=== PATIENT | male | born 1940 | race Caucasian/White ===

== ENCOUNTER 2019-12-14 09:13 | Emergency (ER) | payer MEDICARE, OTHER ==
--- NOTE | 2019-12-14 09:34 | EDM.PDOC ---
ED HPI GENERAL MEDICAL PROBLEM - General Chief Complaint: Genitourinary Problem Stated Complaint: BLOOD IN URINE WITH R SIDE PAIN Time Seen by Provider: 12/14/19 09:32 Source of Information: Reports: Patient, Significant Other History Limitations: Reports: No Limitations - History of Present Illness Onset: Today Onset Date: 12/14/19 Onset Time: 08:45 Duration: Getting Worse Location: Reports: Back (R flank) Quality: Reports: Sharp Severity: Severe Right Groin Pain Score (Numeric/FACES): 4 - Related Data Allergies Allergy/AdvReac Type Severity Reaction Status Date / Time No Known Allergies Allergy Verified 12/14/19 09:32 Home Meds: Home Meds Aspirin [Aspir 81] 81 mg PO DAILY 12/14/19 [History] Cholecalciferol (Vitamin D3) [Vitamin D3] 5,000 unit PO DAILY 12/14/19 [History] Indomethacin, Submicronized [Indomethacin] 50 mg PO ASDIRECTED PRN 12/14/19 [History] Losartan [Cozaar] 100 mg PO DAILY 12/14/19 [History] Multivitamin [Multi-Vitamin Daily] 1 each PO DAILY 12/14/19 [History] Ubidecarenone [Co Q10] 200 mg PO DAILY 12/14/19 [History] Vitamin B Complex with C [Super B Complex With C] 1 cap PO DAILY 12/14/19 [History] Past Medical History Cardiovascular History: Reports: Hypertension - Past Surgical History Male Surgical History: Reports: Prostatectomy, TURP-Transurethral Resection of Prostate Musculoskeletal Surgical History: Reports: Hip Replacement (Right) ED ROS GENERAL - Review of Systems Review Of Systems: See Below Constitutional: Denies: Fever, Weight Loss HEENT: Reports: No Symptoms Respiratory: Denies: Shortness of Breath, Wheezing Cardiovascular: Denies: Chest Pain GI/Abdominal: Reports: Nausea. Denies: Decreased Appetite, Vomiting : Reports: Flank Pain, Hematuria. Denies: Dysuria Skin: Reports: No Symptoms Psychiatric: Reports: No Symptoms Hematologic/Lymphatic: Denies: Anemia, Easy Bleeding, Easy Bruising ED EXAM, RENAL/ - Physical Exam Exam: See Below Exam Limited By: No Limitations General Appearance: Alert, WD/WN, Obese Nose: Normal Inspection Throat/Mouth: Normal Inspection, Other (well hydrated) Head: Atraumatic Neck: Supple, Non-Tender Respiratory/Chest: No Respiratory Distress, Lungs Clear Cardiovascular: Normal Peripheral Pulses, Regular Rate, Rhythm GI/Abdominal: Normal Bowel Sounds, Soft, Other (R flank tenderness.) (Male) Exam: Normal Inspection, Circumcised, Scrotum Tenderness (R). No: Hernia, Inguinal Lymphadenopathy, Penile Lesions, Rash Back Exam: Normal Inspection, CVA Tenderness (R). No: CVA Tenderness (L) Extremities: Normal Inspection, Normal Range of Motion Course - Vital Signs Text/Narrative:: initial differential Dx: UTI, hemorrhagic cystitis, nephrolithiasis. No tachycardia, but pt. is hypertensive. Urinalysis is packed with red blood cells but no white blood cells, nitrites, or bacteria. No evidence of infection, but consistent with kidney stones. Shows a 0.9 cm mass in the bladder wall. No stones are seen. Radiologist has recommended follow-up cystoscopy. At 1150 I called [facility] in [place]. The patient has previously seen Dr. Delaney in urology clinic at . They will make arrangements for the patient to be seen again and will call the patient with an appointment. In the meantime I will be having my ED note faxed to them at [phone]. We will also pax the CT scan to . Last Recorded V/S: Last Vital Signs Temp 36.4 C 12/14/19 09:56 Pulse 68 12/14/19 09:56 Resp 16 12/14/19 09:56 BP 190/94 H 12/14/19 09:56 Pulse Ox 96 12/14/19 09:56 - Orders/Labs/Meds Labs: Laboratory Tests 12/14/19 12/14/19 12/14/19 Range/Units 09:31 10:15 10:15 WBC 6.7 (4.5-11.0) K/uL RBC 4.43 (4.30-5.90) M/uL Hgb 13.1 (12.0-15.0) g/dL Hct 40.1 (40.0-54.0) % MCV 91 (80-98) fL MCH 30 (27-31) pg MCHC 33 (32-36) % Plt Count 183 (150-400) K/uL PT 10.7 (9.5-12.0) sec INR 0.98 (0.80-1.20) Sodium (140-148) mmol/L Potassium (3.6-5.2) mmol/L Chloride (100-108) mmol/L Carbon Dioxide (21-32) mmol/L Anion Gap (5.0-14.0) mmol/L BUN (7-18) mg/dL Creatinine (0.8-1.3) mg/dL Est Cr Clr Drug Dosing mL/min Estimated GFR (MDRD) (>60) Glucose (74-106) mg/dL Calcium (8.5-10.1) mg/dL Total Bilirubin (0.2-1.0) mg/dL AST (15-37) U/L ALT (12-78) U/L Alkaline Phosphatase (46-116) U/L Total Protein (6.4-8.2) g/dL Albumin (3.4-5.0) g/dL Globulin (2.3-3.5) g/dL Albumin/Globulin Ratio (1.2-2.2) Urine Color Red A (YELLOW) Urine Appearance Cloudy A (CLEAR) Urine pH 7.5 (5.0-8.0) Ur Specific [place] 1.020 (1.008-1.030) Urine Protein 100 H (NEGATIVE) mg/dL Urine Glucose (UA) Negative (NEGATIVE) mg/dL Urine Ketones Negative (NEGATIVE) mg/dL Urine Occult Blood Large H (NEGATIVE) Urine Nitrite Negative (NEGATIVE) Urine Bilirubin Small H (NEGATIVE) Urine Urobilinogen 0.2 (0.2-1.0) EU/dL Ur Leukocyte Esterase Negative (NEGATIVE) Urine RBC Packed H (0-5) Urine WBC 0-5 (0-5) Ur Epithelial Cells Not seen Amorphous Sediment Not seen Urine Bacteria Not seen Urine Mucus Not seen 12/14/19 Range/Units 10:15 WBC (4.5-11.0) K/uL RBC (4.30-5.90) M/uL Hgb (12.0-15.0) g/dL Hct (40.0-54.0) % MCV (80-98) fL MCH (27-31) pg MCHC (32-36) % Plt Count (150-400) K/uL PT (9.5-12.0) sec INR (0.80-1.20) Sodium 140 (140-148) mmol/L Potassium 4.5 (3.6-5.2) mmol/L Chloride 104 (100-108) mmol/L Carbon Dioxide 29 (21-32) mmol/L Anion Gap 7.4 (5.0-14.0) mmol/L BUN 19 H (7-18) mg/dL Creatinine 1.1 (0.8-1.3) mg/dL Est Cr Clr Drug Dosing 57.05 mL/min Estimated GFR (MDRD) > 60 (>60) Glucose 100 (74-106) mg/dL Calcium 8.5 (8.5-10.1) mg/dL Total Bilirubin 0.4 (0.2-1.0) mg/dL AST 24 (15-37) U/L ALT 32 (12-78) U/L Alkaline Phosphatase 64 (46-116) U/L Total Protein 6.6 (6.4-8.2) g/dL Albumin 3.4 (3.4-5.0) g/dL Globulin 3.2 (2.3-3.5) g/dL Albumin/Globulin Ratio 1.1 L (1.2-2.2) Urine Color (YELLOW) Urine Appearance (CLEAR) Urine pH (5.0-8.0) Ur Specific [place] (1.008-1.030) Urine Protein (NEGATIVE) mg/dL Urine Glucose (UA) (NEGATIVE) mg/dL Urine Ketones (NEGATIVE) mg/dL Urine Occult Blood (NEGATIVE) Urine Nitrite (NEGATIVE) Urine Bilirubin (NEGATIVE) Urine Urobilinogen (0.2-1.0) EU/dL Ur Leukocyte Esterase (NEGATIVE) Urine RBC (0-5) Urine WBC (0-5) Ur Epithelial Cells Amorphous Sediment Urine Bacteria Urine Mucus Meds: Medications Discontinued Medications Generic Name Dose Route Start Last Admin Trade Name Freq PRN Reason Stop Dose Admin Sodium Chloride 1,000 mls @ 999 mls/hr 12/14/19 09:50 12/14/19 10:16 Normal Saline IV 12/14/19 10:50 999 mls/hr .BOLUS ONE Administration Ketorolac Tromethamine 30 mg 12/14/19 09:51 12/14/19 10:17 Toradol IVPUSH 12/14/19 09:52 30 mg ONETIME ONE Administration Ondansetron HCl 4 mg 12/14/19 09:50 12/14/19 10:17 Zofran IVPUSH 12/14/19 09:51 4 mg ONETIME ONE Administration Departure - Departure Time of Disposition: 12:04 Disposition: Home, Self-Care 01 Condition: Good Clinical Impression: Hematuria syndrome - Discharge Information Referrals: PCP,None [Primary Care Provider] - Forms: ED Department Discharge Additional Instructions: Urology clinic at [facility] will call you with a follow-up appointment. Stay well-hydrated. Take only acetaminophen or the prescribed medication for pain. Do not take ibuprofen, Advil, Aleve or any other NSAID medication. v Sepsis Event Note (ED) - Focused Exam Vital Signs: Vital Signs Temp Pulse Resp BP Pulse Ox 12/14/19 09:56 36.4 C 68 16 190/94 H 96 12/14/19 09:31 36.4 C 68 16 190/94 H 96
[2019-12-14] MEDS ORDERED: Sodium Chloride 0.9% 1,000 ML IV ONE (09:50)
[2019-12-14] MEDS ORDERED: Ondansetron 4 MG/2 ML SDV IVPUSH ONE (09:50)
[2019-12-14] MEDS ORDERED: Ketorolac 30 MG/ML SDV IVPUSH ONE (09:51)
--- NOTE | 2019-12-14 11:23 | CRLCT ---
INDICATION: Right flank pain, hematuria. TECHNIQUE: CT of the abdomen and pelvis without intravenous contrast. Coronal and sagittal reconstructions. COMPARISON: None. FINDINGS: No urinary calculi. No hydronephrosis or ureteral dilation. Bilateral nonspecific perinephric stranding. Postoperative changes of prostatectomy. There is a 0.9 cm soft tissue nodule in the midline posterior inferior bladder (series 5, image 194). This could represent a bladder mass versus local recurrence. The unenhanced liver, gallbladder, spleen, pancreas, and adrenal glands are normal in appearance. Spleen. Surgical clips at the gastroesophageal junction. No bowel dilation. Redundant sigmoid colon. Moderate amount of stool in the ascending and transverse colon. Negative appendix. No intraperitoneal free air or fluid. Aortoiliac vascular calcifications. No lymphadenopathy. Degenerative changes of the spine. Right hip arthroplasty which causes streak artifact in the pelvis. The lung bases are clear. Aortic valve calcifications. IMPRESSION: 1. 0.9 cm soft tissue nodule in the midline posterior inferior bladder could represent a bladder mass versus local recurrence (presuming history of prostate cancer given prostatectomy). Recommend further evaluation with cystoscopy. 2. No urinary calculi or evidence of urinary obstruction. 3. No other acute findings in the abdomen or pelvis on this noncontrast exam. Please note that all CT scans at this facility use dose modulation, iterative reconstruction, and/or weight-based dosing when appropriate to reduce radiation dose to as low as reasonably achievable. Dictated by Nina Collazo MD @ Dec 14 2019 11:10AM Signed by Dr. Nina Collazo @ Dec 14 2019 11:21AM
== END 2019-12-14 12:51 | disposition home or self-care (01) ==
LOC: JP.ED 09:13
DX: R31.9 Hematuria, unspecified (principal); I10 Essential (primary) hypertension; Z79.82 Long term (current) use of aspirin; Z79.899 Other long term (current) drug therapy
CPT/HCPCS: 36415; 74176; 80053; 81001; 85027; 85610; 96374; 96375; 99284; J1885; J2405; J7030

== ENCOUNTER 2020-04-29 09:52 | Emergency (ER) | payer OTHER, MEDICARE ==
[2020-04-29] MEDS ORDERED: Aspirin 81 MG Tab.Chew PO ONE (10:19)
[2020-04-29] MEDS ORDERED: Nitroglycerin 0.4 MG Tab.SL SL PRN (10:19)
[2020-04-29] MEDS ORDERED: Morphine 4 MG/ML Syringe IVPUSH PRN (10:19)
--- NOTE | 2020-04-29 10:22 | EDM.PDOC ---
ED HPI GENERAL MEDICAL PROBLEM - General Chief Complaint: Chest Pain Stated Complaint: HEART ISSUES Time Seen by Provider: 04/29/20 10:14 Source of Information: Reports: Patient, Family, RN Notes Reviewed History Limitations: Reports: No Limitations - History of Present Illness INITIAL COMMENTS - FREE TEXT/NARRATIVE: 80-year-old male presents emergency department with a complaint of chest pain he initially had pretty significant chest pain on of this last week he was out snowblowing chest pain so intense he had to stop and rest it lasted about 2 hours and now has gone down he he rates it kind of a dull achy pain at 1 out of 10 he was very short of breath no nausea no diaphoresis no history of coronary artery disease remote history of tobacco use. - Related Data Allergies Allergy/AdvReac Type Severity Reaction Status Date / Time No Known Allergies Allergy Verified 12/14/19 09:32 Home Meds: Home Meds Aspirin [Aspir 81] 81 mg PO DAILY 12/14/19 [History] Cholecalciferol (Vitamin D3) [Vitamin D3] 5,000 unit PO DAILY 12/14/19 [History] Indomethacin, Submicronized [Indomethacin] 50 mg PO ASDIRECTED PRN 12/14/19 [History] Losartan [Cozaar] 100 mg PO DAILY 12/14/19 [History] Multivitamin [Multi-Vitamin Daily] 1 each PO DAILY 12/14/19 [History] Ubidecarenone [Co Q10] 200 mg PO DAILY 12/14/19 [History] Vitamin B Complex with C [Super B Complex With C] 1 cap PO DAILY 12/14/19 [History] Nitroglycerin [Nitrostat] 0.4 mg SL ASDIRECTED PRN #10 tab.sl 04/29/20 [Rx] Past Medical History HEENT History: Reports: Cataract Cardiovascular History: Reports: Hypertension Gastrointestinal History: Reports: PUD Musculoskeletal History: Reports: Fracture, Gout Psychiatric History: Reports: Anxiety, PTSD Hematologic History: Reports: Blood Transfusion(s) Oncologic (Cancer) History: Reports: Prostate - Infectious Disease History Infectious Disease History: Reports: Chicken Pox, Measles, Mumps, Shingles - Past Surgical History HEENT Surgical History: Reports: Cataract Surgery, Other (See Below) Other HEENT Surgeries/Procedures: NASAL POLYPS GI Surgical History: Reports: Other (See Below) Other GI Surgeries/Procedures: "Bridge over the ulcer" Male Surgical History: Reports: Prostatectomy, TURP-Transurethral Resection of Prostate Musculoskeletal Surgical History: Reports: Hip Replacement Social & Family History - Caffeine Use Caffeine Use: Reports: Coffee - Recreational Drug Use Recreational Drug Use: No ED ROS GENERAL - Review of Systems Review Of Systems: See Below Constitutional: Reports: No Symptoms Respiratory: Reports: Shortness of Breath Cardiovascular: Reports: Chest Pain, Dyspnea on Exertion GI/Abdominal: Reports: No Symptoms : Reports: No Symptoms ED EXAM, GENERAL - Physical Exam Exam: See Below Exam Limited By: No Limitations General Appearance: Alert, WD/WN, No Apparent Distress Respiratory/Chest: No Respiratory Distress, Lungs Clear, Normal Breath Sounds, No Accessory Muscle Use, Chest Non-Tender Cardiovascular: Regular Rate, Rhythm, Systolic Murmur GI/Abdominal: Soft, Non-Tender Extremities: Pedal Edema Course - Vital Signs Last Recorded V/S: Last Vital Signs Temp 96.8 F L 04/29/20 10:05 Pulse 51 L 04/29/20 11:47 Resp 15 04/29/20 11:47 BP 157/75 H 04/29/20 11:47 Pulse Ox 99 04/29/20 11:47 - Orders/Labs/Meds Orders: Active Orders 24 hr Category Date Time Status Cardiac Monitoring [RC] .As Directed Care 04/29/20 10:19 Active EKG Documentation Completion [RC] ASDIRECTED Care 04/29/20 10:20 Active Chest 2V [CR] Stat Exams 04/29/20 10:20 Taken Morphine Med 04/29/20 10:19 Active 4 mg IVPUSH Q10M PRN Nitroglycerin [Nitrostat] Med 04/29/20 10:19 Active 0.4 mg SL Q5M PRN EKG 12 Lead [EK] Stat Ther 04/29/20 10:20 Ordered Medication Orders Morphine Sulfate (Morphine) 4 mg IVPUSH Q10M PRN PRN Reason: Chest Pain Stop: 04/30/20 10:19 Nitroglycerin (Nitrostat) 0.4 mg SL Q5M PRN PRN Reason: Chest Pain Stop: 04/30/20 10:19 Last Admin: 04/29/20 10:28 Dose: 0.4 mg Documented by: [id number] Labs: Laboratory Tests 04/29/20 04/29/20 Range/Units 10:30 10:30 WBC 5.0 (4.5-11.0) K/uL RBC 4.09 L (4.30-5.90) M/uL Hgb 12.4 (12.0-15.0) g/dL Hct 37.2 L (40.0-54.0) % MCV 91 (80-98) fL MCH 30 (27-31) pg MCHC 33 (32-36) % Plt Count 180 (150-400) K/uL Neut % (Auto) 60 (36-66) % Lymph % (Auto) 24 (24-44) % [place] % (Auto) 13 H (2-6) % Eos % (Auto) 3 (2-4) % Baso % (Auto) 1 (0-1) % Sodium 140 (140-148) mmol/L Potassium 4.0 (3.6-5.2) mmol/L Chloride 103 (100-108) mmol/L Carbon Dioxide 30 (21-32) mmol/L Anion Gap 11.0 (5.0-14.0) mmol/L BUN 21 H (7-18) mg/dL Creatinine 1.0 (0.8-1.3) mg/dL Est Cr Clr Drug Dosing 57.93 mL/min Estimated GFR (MDRD) > 60 (>60) Glucose 108 H (74-106) mg/dL Calcium 8.1 L (8.5-10.1) mg/dL Total Bilirubin 0.3 (0.2-1.0) mg/dL AST 25 (15-37) U/L ALT 33 (12-78) U/L Alkaline Phosphatase 62 (46-116) U/L Troponin I < 0.017 (0.000-0.056) ng/mL Total Protein 6.1 L (6.4-8.2) g/dL Albumin 3.1 L (3.4-5.0) g/dL Globulin 3.0 (2.3-3.5) g/dL Albumin/Globulin Ratio 1.0 L (1.2-2.2) Meds: Medications Generic Name Dose Route Start Last Admin Trade Name Freq PRN Reason Stop Dose Admin Morphine Sulfate 4 mg 04/29/20 10:19 Morphine IVPUSH 04/30/20 10:19 Q10M PRN Chest Pain Nitroglycerin 0.4 mg 04/29/20 10:19 04/29/20 10:28 Nitrostat SL 04/30/20 10:19 0.4 mg Q5M PRN Administration Chest Pain Discontinued Medications Generic Name Dose Route Start Last Admin Trade Name Freq PRN Reason Stop Dose Admin Aspirin 324 mg 04/29/20 10:19 04/29/20 10:28 Aspirin PO 04/29/20 10:20 324 mg ONETIME ONE Administration Departure - Departure Time of Disposition: 11:58 Disposition: Home, Self-Care 01 Condition: Fair Clinical Impression: Unstable angina Prescriptions: Nitroglycerin [Nitrostat] 0.4 mg SL ASDIRECTED PRN #10 tab.sl PRN Reason: Pain Referrals: PCP,None [Primary Care Provider] - Forms: ED Department Discharge Additional Instructions: Prescription for nitro is to be used whenever you have chest pain, if you still have chest pain after 5 minutes after the initial dose you may repeat this twice. For a total of 3 doses if you still have chest pain please report to the emergency department for further evaluation. Call your primary care on Friday at the [facility] and schedule a stress test and an emergency room follow-up Sepsis Event Note (ED) - Evaluation Sepsis Screening Result: No Definite Risk - Focused Exam Vital Signs: Vital Signs Temp Pulse Resp BP BP Pulse Ox 04/29/20 11:47 51 L 15 157/75 H 99 04/29/20 11:07 58 L 15 164/83 H 98 04/29/20 10:28 181/86 H 04/29/20 10:05 96.8 F L 59 L 16 181/86 H 98 04/29/20 10:04 96.8 F L 59 L 16 181/86 H 98 - My Orders Last 24 Hours: My Active Orders 04/29/20 10:19 Cardiac Monitoring [RC] .As Directed Morphine 4 mg IVPUSH Q10M PRN Nitroglycerin [Nitrostat] 0.4 mg SL Q5M PRN 04/29/20 10:20 EKG Documentation Completion [RC] ASDIRECTED Chest 2V [CR] Stat EKG 12 Lead [EK] Stat - Assessment/Plan Last 24 Hours: My Active Orders 04/29/20 10:19 Cardiac Monitoring [RC] .As Directed Morphine 4 mg IVPUSH Q10M PRN Nitroglycerin [Nitrostat] 0.4 mg SL Q5M PRN 04/29/20 10:20 EKG Documentation Completion [RC] ASDIRECTED Chest 2V [CR] Stat EKG 12 Lead [EK] Stat Plan: Assessment Acuity = acute Site and laterality = chest pain Etiology = concern for underlying coronary artery disease Manifestations = none Location of injury = Home Lab values = CBC, CMP unremarkable troponin was negative EKG demonstrates a right bundle branch block chest x-ray shows no acute process official read radiologist pending Plan I did review options with him he is going to contact his primary care at the [facility] and try and schedule a stress test this week I did write a prescription for nitro sublingual that he will use when he develops chest pain he received 1 dose of nitro here which made him chest pain-free This note was dictated using [employer] voice recognition software please call with any questions on syntax or grammar.
--- NOTE | 2020-05-01 11:11 | CR ---
CHEST: 2 view CLINICAL HISTORY:Chest pain COMPARISON:None FINDINGS: The heart size, pulmonary vascularity and hilar structures are normal. No infiltrate effusion or pneumothorax is seen. IMPRESSION: No acute cardiopulmonary process.
== END 2020-04-29 12:20 | disposition home or self-care (01) ==
LOC: JP.ED 09:52
DX: I20.0 Unstable angina (principal); I10 Essential (primary) hypertension; M10.9 Gout, unspecified; Z79.82 Long term (current) use of aspirin; Z79.899 Other long term (current) drug therapy
CPT/HCPCS: 36415; 71046; 80053; 84484; 85025; 93005; 93010; 99285; A9270